=== PATIENT | female | born 1970 | race African-American/Black ===

== ENCOUNTER 2021-04-30 10:30 | Emergency (ER) | payer OTHER ==
[2021-04-30] MEDS ORDERED: Acetaminophen 500 MG TAB ONE (11:45)
[2021-04-30] MEDS ORDERED: Lidocaine 1% w/Epinephrine 1:100K 20 ML VIAL ONE (11:47)
[2021-04-30 11:50] LABS: #Basophils 0.1 thou/uL (0.0-0.2); #Eosinphils 0.1 thou/uL (0.0-0.7); #Lymphocytes 2.8 thou/uL (1.20-3.40); #Monocytes 0.6 thou/uL (0.11-0.59); #Neutrophils 6.3 thou/uL (1.40-6.50); %Basophils 1.4 % (0.0-1.0); %Eosinophils 1.3 % (0.0-10.0); %Lymphocytes 28.4 % (21.0-51.0); %Monocytes 5.7 % (0.0-10.0); %Neutrophils 63.3 % (42.0-75.0); Hemoglobin 13.5 g/dL (12.0-16.0); Mean Corpuscular HGB CONC 34.4 g/dL (32.0-36.0); Mean Corpuscular Hemoglobin 33.9 pg (27.0-31.0); Mean Corpuscular Volume 98.3 fL (78.0-98.0); Platelet Count 310 thou/uL (130-400); RBC Distribution Width 12.3 % (11.5-14.5); Red Blood Cell (RBC) Count 3.98 mill/uL (4.20-5.40); White Blood Cell (WBC) Count 9.9 thou/uL (4.8-10.8)
[2021-04-30 12:12] LABS: ALT (SGPT) 15 U/L (8-55); AST (SGOT) 19 U/L (5-34); Albumin 3.8 g/dL (3.5-5.0); Alkaline Phosphatase 62 U/L (40-110); Anion Gap 13 mmol/L (10-20); BUN (Urea Nitrogen) 10 mg/dL (9.8-20.1); Bilirubin, Total 0.6 mg/dL (0.2-1.2); CRP (Inflammatory) Less than 0.50 mg/dL (= or < 0.5); Calc. Creatinine Clearance 0 mL/min (70-130); Carbon Dioxide 23 mmol/L (22-29); Chloride 108 mmol/L (98-107); Globulin 2.5 g/dL (2.4-3.5); Glucose 118 mg/dL (70-105); Potassium 3.6 mmol/L (3.5-5.1); Protein, Total 6.3 g/dL (6.0-8.3); Sodium 140 mmol/L (136-145)
[2021-04-30 13:30] LABS: RBC Count-Automated (BF) 46627 /cu.mm; WBC/Nucleated-Auto (BF) 142 uL
[2021-04-30] MEDS ORDERED: Gabapentin 100 MG CAP PO SCH (13:45)
[2021-04-30 14:00] LABS: BF Color Red; Body Fluid Source Synovial Fluid; Clarity Cloudy/Turbid (Clear); Tube # EDTA
[2021-04-30 14:03] LABS: BF Segmented Neutrophils 49 %; Cell Count Non Hematic 19 %; Lymphocytes 31 %
== END 2021-04-30 13:57 | disposition home or self-care (01) ==
LOC: ERS 10:30
DX: M17.11 Unilateral primary osteoarthritis, right knee (principal); I10 Essential (primary) hypertension; F17.210 Nicotine dependence, cigarettes, uncomplicated
CPT/HCPCS: 20611; 36415; 80053; 82945; 85025; 85060; 85652; 86140; 87070; 87205; 89051; 89060

== ENCOUNTER 2021-05-19 19:21 | Emergency (ER) | payer OTHER ==
[2021-05-19] MEDS ORDERED: Ketorolac Tromethamine 30 MG/ML VIAL ONE (20:52)
== END 2021-05-19 21:05 | disposition home or self-care (01) ==
LOC: ERS 19:21
DX: M25.561 Pain in right knee (principal); F17.210 Nicotine dependence, cigarettes, uncomplicated; I10 Essential (primary) hypertension
CPT/HCPCS: 96372; 99283; J1885

== ENCOUNTER 2021-05-24 07:11 | Emergency (ER) | payer OTHER ==
[2021-05-24] MEDS ORDERED: Acetaminophen 500 MG TAB ONE (07:56)
== END 2021-05-24 08:41 | disposition home or self-care (01) ==
LOC: ERS 07:11
DX: M25.561 Pain in right knee (principal); I10 Essential (primary) hypertension; F17.210 Nicotine dependence, cigarettes, uncomplicated; Z79.899 Other long term (current) drug therapy